=== PATIENT | female | born 1940 | race Caucasian/White ===

== ENCOUNTER 2017-10-01 16:19 | Emergency (ER) | payer MEDICARE | END 2017-10-01 18:57 | disposition home or self-care (01) | LOC: ERS 16:19 | DX: S61.212A Laceration without foreign body of right middle finger without damage to nail, initial encounter (principal); I48.91 Unspecified atrial fibrillation; I10 Essential (primary) hypertension; Z86.73 Personal history of transient ischemic attack (TIA), and cerebral infarction without residual deficits; W26.0XXA Contact with knife, initial encounter | CPT/HCPCS: 99282 ==